=== PATIENT | female | born 1940 | race Asian ===

== ENCOUNTER 2023-06-27 13:37 | Emergency (ER) | payer OTHER ==
[~2023-06-27] VITALS: Ht 160 cm; Wt 65.8 kg
[2023-06-27 13:53] VITALS: BP 172/73; PULSE 89; RESP 18; TEMP 97.1; O2SAT 97
[2023-06-27] MEDS ORDERED: KETOROLAC 30 MG/ML VIAL IM ONE (15:05)
[2023-06-27] MEDS ORDERED: ACETAMINOPHEN EXTRA STRENGTH 500 MG TAB PO ONE (15:05)
[2023-06-27 15:33] LABS: BASOPHILS % (AUTO) 0.4 % (0.0-2.0); EOSINOPHILS # (AUTO) 0.1 K/uL (0-0.4); EOSINOPHILS % (AUTO) 0.6 % (0.0-4.0); HEMATOCRIT 36.5 % (36-48); HEMOGLOBIN 12.4 g/dL (12.0-16.0); LYMPHOCYTES # (AUTO) 1.8 K/uL (2.5-16.5); LYMPHOCYTES % (AUTO) 18.3 % (20.5-51.1); MEAN CORPUSCULAR HEMOGLOBIN 33 pg (27-31); MEAN CORPUSCULAR HGB CONC 34 g/dL (33-37); MEAN CORPUSCULAR VOLUME 97.2 fL (80-94); MONOCYTES # (AUTO) 0.5 K/uL (0.8-1.0); MONOCYTES % (AUTO) 5.3 % (1.7-9.3); NEUTROPHILS # (AUTO) 7.3 K/uL (1.8-7.7); NEUTROPHILS % (AUTO) 75.4 % (42.2-75.2); PLATELET COUNT (AUTO) 239 K/uL (140-450); RED BLOOD CELL COUNT(AUTO) 3.75 MIL/uL (4.20-5.40); RED CELL DISTRIBUTION WIDTH 13.3 % (11.6-13.7); WHITE BLOOD COUNT (AUTO) 9.7 K/uL (4.8-10.8)
[2023-06-27] MEDS: BACLOFEN 10 MG TAB PO SCH ×2 (15:38→15:51)
[2023-06-27] MEDS ORDERED: CRUSHER, PILL MC ONE (15:40)
[2023-06-27 15:55] LABS: CALCIUM 9.9 mg/dL (8.5-10.1); CARBON DIOXIDE 26.8 mmol/L (21-32); CHLORIDE 100 mmol/L (98-107); CREATININE 0.9 mg/dL (0.6-1.3); GLUCOSE 151 mg/dL (74-106); POTASSIUM 3.8 mmol/L (3.5-5.1); SODIUM SERUM 138 mmol/L (136-145); UREA NITROGEN, BLOOD 18 mg/dL (7-18)
[2023-06-27] MEDS ORDERED: NACL 0.9% 1,000 ML IV ONE (16:15)
[2023-06-27] MEDS ORDERED: LIDOCAINE 5% 1 EA PATCH TP ONE (16:25)
[2023-06-27] MEDS ORDERED: LORazepam 2 MG/ML VIAL IVP ONE (16:25)
[2023-06-27 17:36] VITALS: BP 158/71; PULSE 84; RESP 18; TEMP 98.2; O2SAT 97
[2023-06-27] MEDS ORDERED: LID5T TP (17:36)
[2023-06-27] MEDS ORDERED: ATI.5 PO (17:36)
[2023-06-27] MEDS ORDERED: ACET-10509 PO (17:36)
[2023-06-27] MEDS ORDERED: BACL10TA4 PO (17:36)
== END 2023-06-27 18:02 | disposition home or self-care (01) ==
LOC: MED 13:37
DX: M43.6 Torticollis (principal); E11.9 Type 2 diabetes mellitus without complications; Z79.4 Long term (current) use of insulin; Z79.899 Other long term (current) drug therapy
CPT/HCPCS: 36415; 70450; 70490; 80048; 83605; 83690; 85025; 87040; 96361; 96372; 96374; 99285; J1885; J2060; J7030